=== PATIENT | female | born 2000 | race Two or more races ===

== ENCOUNTER 2024-01-09 00:40 | Emergency (ER) | payer OTHER ==
[~2024-01-09] VITALS: Ht 165.1 cm; Wt 45.4 kg
[2024-01-09] MEDS ORDERED: KETOROLAC TROMETHAMINE 60 MG VIAL IM STA (01:06)
[2024-01-09] MEDS ORDERED: ACETAMINOPHEN 500 MG GEL..CAP PO STA (01:07)
[2024-01-09 01:30] LABS: HEMATOCRIT 39.8 % (36.0-45.00); HEMOGLOBIN 13.6 g/dL (12.0-15.00); MEAN CELL VOLUME 89.3 fL (80.00-100.00); MEAN CORPUSCULAR HEMOGLOBIN 30.4 pg (27.00-32.0); MEAN CORPUSCULAR HGB CONC 34.1 g/dl (32.0-36.0); PLATELET COUNT 243 K/uL (150-450); RED BLOOD COUNT 4.46 M/uL (4.00-6.00)
[2024-01-09 01:47] LABS: CALCIUM 9.2 mg/dL (8.5-10.1); CREATININE SERUM 0.7 mg/dL (0.55-1.02); GFR 105.63; POTASSIUM 3.91 mEq/L (3.5-5.1)
== END 2024-01-09 03:30 | disposition home or self-care (01) ==
LOC: EMR PED 00:41 → ER 00:41
DX: N94.0 Mittelschmerz (principal); R10.2 Pelvic and perineal pain